=== PATIENT | female | born 1975 | race African-American/Black ===

== ENCOUNTER 2017-08-09 18:32 | Emergency (ER) | payer SELFPAY ==
[2017-08-09] MEDS: DOCUSATE SODIUM 283 MG/5 ML ENEMA. PR (19:45)
[2017-08-09] MEDS: ONDANSETRON ODT 4 MG TAB.RAPDIS. PO (20:50)
== END 2017-08-09 21:28 | disposition home or self-care (01) ==
LOC: ER 18:32
DX: K59.00 Constipation, unspecified (principal); F17.210 Nicotine dependence, cigarettes, uncomplicated
CPT/HCPCS: 74018; 99284; Q0162

== ENCOUNTER 2017-11-21 12:49 | Emergency (ER) | payer SELFPAY ==
[2017-11-21 13:12] LABS: ADD MAN DIFF? NO
[2017-11-21 13:14] LABS: BASO # 0.1 x10^3/uL (0.0-0.2); BASO % 1 % (0-3); EOS # 0.1 x10^3/uL (0.0-0.7); EOS % 2 % (0-3); HEMATOCRIT 36.4 % (36.0-47.0); HEMOGLOBIN 12.6 g/dL (12.0-15.5); LYMPH # 3.3 x10^3/uL (1.0-4.8); LYMPH % 37 % (24-48); MEAN CORPUSCULAR HEMOGLOBIN 29 pg (25-35); MEAN CORPUSCULAR HGB CONC 35 g/dL (31-37); MEAN CORPUSCULAR VOLUME 84 fL (79-100); MONO # 0.4 x10^3/uL (0.0-1.1); MONO % 5 % (0-9); NEUT % 56 % (31-73); PLATELET COUNT 247 x10^3/uL (140-400); RED BLOOD COUNT 4.35 x10^6/uL (3.50-5.40); RED CELL DISTRIBUTION WIDTH 14.6 % (11.5-14.5)
[2017-11-21 13:26] LABS: ANION GAP 10 (6-14); BLOOD UREA NITROGEN 9 mg/dL (7-20); BUN/CREATININE RATIO 10 (6-20); CALCIUM 9.3 mg/dL (8.5-10.1); CARBON DIOXIDE 24 mmol/L (21-32); CHLORIDE 105 mmol/L (98-107); CREATININE 0.9 mg/dL (0.6-1.0); GFR 83.1; GLUCOSE 109 mg/dL (70-99); POTASSIUM 4.2 mmol/L (3.5-5.1); SODIUM 139 mmol/L (136-145)
[2017-11-21 13:32] LABS: ALBUMIN 3.8 g/dL (3.4-5.0); ALK PHOS 90 U/L (46-116); ALT (SGPT) 26 U/L (14-59); AST (SGOT) 22 U/L (15-37); MAGNESIUM 2.3 mg/dL (1.8-2.4); TOTAL BILIRUBIN 0.3 mg/dL (0.2-1.0); TOTAL PROTEIN 7.8 g/dL (6.4-8.2)
[2017-11-21] MEDS: ASPIRIN 325 MG TABLET PO (13:33)
[2017-11-21 13:34] LABS: TROPONINI < 0.017 ng/mL (0.000-0.055)
[2017-11-21] MEDS: IV NORMAL SALINE 1000ML BAG 1,000 ML IV (13:34)
[2017-11-21 13:39] LABS: CREATINE KINASE 147 U/L (26-192)
[2017-11-21 13:39] LABS: NT-PRO BNP 116 pg/mL (0-124); THYROID STIM HORMONE (TSH) 1.963 uIU/mL (0.358-3.74)
[2017-11-21 13:46] LABS: CKMB INDEX 0.3 % (0-4); CKMB MASS < 0.5 ng/mL (0.0-3.6)
[2017-11-21 14:34] LABS: BILIRUBIN,URINE NEGATIVE (NEG); CLARITY,URINE CLEAR; COLOR,URINE YELLOW; GLUCOSE,URINE NEGATIVE (NEG); NITRITE,URINE NEGATIVE (NEG); PROTEIN,URINE NEGATIVE (NEG-TRACE)
[2017-11-21 14:38] LABS: AMPHETAMINE/METHAMPHETAMINE NEG (NEG); BARBITURATES NEG (NEG); BENZODIAZEPINES NEG (NEG); CANNABINOIDS POS (NEG); COCAINE POS (NEG); ETHANOL, URINE NEG (NEG); METHADONE NEG (NEG); OPIATES NEG (NEG); PHENCYCLIDINE NEG (NEG)
[2017-11-21 14:43] LABS: BACTERIA,URINE FEW /HPF (0-FEW); RBC,URINE 0 /HPF (0-2); SQUAMOUS EPITHELIAL CELL,UR MANY /LPF
== END 2017-11-21 15:02 | disposition left against medical advice (07) ==
LOC: ER 12:49
DX: R07.89 Other chest pain (principal); F14.10 Cocaine abuse, uncomplicated; F12.10 Cannabis abuse, uncomplicated; F17.200 Nicotine dependence, unspecified, uncomplicated
CPT/HCPCS: 36415; 71045; 80053; 80307; 81001; 82553; 83735; 83880; 84443; 84484; 85025; 93005; 99285-25; J7030

== ENCOUNTER 2018-05-30 10:36 | Emergency (ER) | payer SELFPAY ==
[~2018-05-30] VITALS: Ht 162.6 cm; Wt 77.1 kg
[~2018-05-30 10:36] MED LIST: DOCU-109 PO; MAGN296S9 PO
--- NOTE | 2018-05-30 11:29 | PHYS DOC ---
Past Medical History Past Medical History: Ovarian Cyst, Other Additional Past Medical Histor: PRE CANCEROUS CERVICAL SCREEN Past Surgical History: Tonsillectomy Additional Information: 1/2 PACK/DAY Alcohol Use: Occasionally Drug Use: Cocaine, Marijuana Adult General Chief Complaint Chief Complaint: VAGINAL BLEEDING HPI HPI 32-year-old female presents to ER via POV with complaints of lower mid abdominal pain which started yesterday that time of her menstrual cycle onset. Patient reports over the past 3-4 months she's had this type of discomfort with her menstrual cycles. Patient reports she has also had nausea and vomiting over the past several months where her menstrual cycle start. She reports this morning since 7 AM she has gone through 3 peripads. Patient denies any vaginal discharge when she is not on her cycle. Patient denies concerns for STDs as she' s been with her partner for 20 years. Patient denies fever or urinary symptoms. Patient reports she has had regular bowel movements and denies change in her appetite. Patient did take Midol this morning. Review of Systems Review of Systems Constitutional: Denies fever or chills [] Eyes: Denies change in visual acuity, redness, or eye pain [] HENT: Denies nasal congestion or sore throat [] Respiratory: Denies cough or shortness of breath [] Cardiovascular: No additional information not addressed in HPI [] GI: Denies bloody stools or diarrhea [] : Denies dysuria or hematuria [] Musculoskeletal: Denies back pain or joint pain [] Integument: Denies rash or skin lesions [] Neurologic: Denies headache, focal weakness or sensory changes [] All other systems were reviewed and found to be within normal limits, except as documented in this note. Allergies Allergies Allergies Coded Allergies Type Severity Reaction Last Updated Verified No Known Drug Allergies 10/03/15 No Physical Exam Physical Exam Constitutional: Well developed, well nourished, no acute distress, non-toxic appearance. [] HENT: Normocephalic, atraumatic, bilateral external ears normal, oropharynx moist, no oral exudates, nose normal. [] Eyes: PERRLA, EOMI, conjunctiva normal, no discharge. [] Neck: Normal range of motion, no tenderness, supple, no stridor. [] Cardiovascular: Heart rate regular rhythm, no murmur [] Lungs & Thorax: Bilateral breath sounds clear to auscultation [] Abdomen: Bowel sounds normal, soft, no tenderness, no masses, no pulsatile masses. [] Skin: Warm, dry, no erythema, no rash. [] Back: No tenderness, no CVA tenderness. [] Extremities: No tenderness, no cyanosis, no clubbing, ROM intact, no edema. [] Neurologic: Alert and oriented X 3, normal motor function, normal sensory function, no focal deficits noted. [] Psychologic: Affect normal, judgement normal, mood normal. [] Current Patient Data Vital Signs Vital Signs Date Time Temp Pulse Resp B/P (MAP) Pulse Ox O2 Delivery O2 Flow Rate FiO2 05/30/18 13:00 75 18 122/80 (94) 98 Room Air 05/30/18 10:55 97.9 97.9 Lab Values Laboratory Tests Test 05/30/18 12:21 05/30/18 12:30 05/30/18 12:33 Urine Collection Type Unknown Urine Color Yellow Urine Clarity Cloudy Urine pH 7.5 Urine Specific [place] 1.020 Urine Protein Negative mg/dL (NEG-TRACE) Urine Glucose (UA) Negative mg/dL (NEG) Urine Ketones (Stick) Negative mg/dL (NEG) Urine Blood Small (NEG) Urine Nitrite Negative (NEG) Urine Bilirubin Negative (NEG) Urine Urobilinogen Dipstick 1.0 mg/dL (0.2 mg/dL) Urine Leukocyte Esterase Small (NEG) Urine RBC 6-10 /HPF (0-2) Urine WBC 5-10 /HPF (0-4) Urine Squamous Epithelial Cells Few /LPF Urine Bacteria Few /HPF (0-FEW) Urine Mucus Mod /LPF White Blood Count 10.5 x10^3/uL (4.0-11.0) Red Blood Count 4.33 x10^6/uL (3.50-5.40) Hemoglobin 12.6 g/dL (12.0-15.5) Hematocrit 35.6 % (36.0-47.0) L Mean Corpuscular Volume 82 fL (79-100) Mean Corpuscular Hemoglobin 29 pg (25-35) Mean Corpuscular Hemoglobin Concent 35 g/dL (31-37) Red Cell Distribution Width 14.4 % (11.5-14.5) Platelet Count 243 x10^3/uL (140-400) Neutrophils (%) (Auto) 63 % (31-73) Lymphocytes (%) (Auto) 30 % (24-48) Monocytes (%) (Auto) 5 % (0-9) Eosinophils (%) (Auto) 1 % (0-3) Basophils (%) (Auto) 1 % (0-3) Neutrophils # (Auto) 6.6 x10^3uL (1.8-7.7) Lymphocytes # (Auto) 3.2 x10^3/uL (1.0-4.8) Monocytes # (Auto) 0.5 x10^3/uL (0.0-1.1) Eosinophils # (Auto) 0.1 x10^3/uL (0.0-0.7) Basophils # (Auto) 0.1 x10^3/uL (0.0-0.2) Sodium Level 137 mmol/L (136-145) Potassium Level 3.9 mmol/L (3.5-5.1) Chloride Level 102 mmol/L (98-107) Carbon Dioxide Level 23 mmol/L (21-32) Anion Gap 12 (6-14) Blood Urea Nitrogen 6 mg/dL (7-20) L Creatinine 0.7 mg/dL (0.6-1.0) Estimated GFR (Cockcroft-Gault) 110.5 Glucose Level 91 mg/dL (70-99) Calcium Level 9.5 mg/dL (8.5-10.1) POC Urine HCG, Qualitative Hcg negative (Negative) Laboratory Tests 05/30/18 12:30 Laboratory Tests 05/30/18 12:30 Microbiology 05/30/18 Urine Culture - Final, Complete 05/30/18 Urine Culture Result 1 (ROSANNE) - Final, Complete EKG EKG [] Radiology/Procedures Radiology/Procedures [] Course & Med Decision Making Course & Med Decision Making Pertinent Labs and Imaging studies reviewed. (See chart for details) 1322: RN reports pt is requesting to be discharged and is not wanting pelvic exam in ER with plans to f/u with [facility] and will have further testing and eval. done at their office. She has remained stable while in ER denying any increase in abd. pain or vag. bleeding. Dragon Disclaimer Dragon Disclaimer This electronic medical record was generated, in whole or in part, using a voice recognition dictation system. Departure Departure Impression: Primary Impression: Abdominal pain Additional Impression: Painful menstrual periods Referrals: NO PCP (PCP) DIANA CACERES Jr, MD Patient Instructions: Abdominal Pain, Dysmenorrhea Additional Instructions: As discussed you should follow-up with [facility] for further care and evaluation for your ongoing symptoms during your menstrual cycle. You can continue taking Tylenol and/or Midol for pain as directed on container. Problem Qualifiers KRISTIE WEINSTEIN APRN May 30, 2018 11:28
[2018-05-30 12:40] LABS: BASO # 0.1 x10^3/uL (0.0-0.2); BASO % 1 % (0-3); EOS # 0.1 x10^3/uL (0.0-0.7); EOS % 1 % (0-3); HEMATOCRIT 35.6 % (36.0-47.0); HEMOGLOBIN 12.6 g/dL (12.0-15.5); LYMPH # 3.2 x10^3/uL (1.0-4.8); LYMPH % 30 % (24-48); MEAN CORPUSCULAR HEMOGLOBIN 29 pg (25-35); MEAN CORPUSCULAR HGB CONC 35 g/dL (31-37); MEAN CORPUSCULAR VOLUME 82 fL (79-100); MONO # 0.5 x10^3/uL (0.0-1.1); MONO % 5 % (0-9); NEUT # 6.6 x10^3uL (1.8-7.7); NEUT % 63 % (31-73); PLATELET COUNT 243 x10^3/uL (140-400); RED BLOOD COUNT 4.33 x10^6/uL (3.50-5.40); RED CELL DISTRIBUTION WIDTH 14.4 % (11.5-14.5); WHITE BLOOD COUNT 10.5 x10^3/uL (4.0-11.0)
[2018-05-30 12:42] LABS: BILIRUBIN,URINE NEGATIVE (NEG); CLARITY,URINE CLOUDY; COLOR,URINE YELLOW; NITRITE,URINE NEGATIVE (NEG); PH,URINE 7.5; PROTEIN,URINE NEGATIVE (NEG-TRACE)
--- NOTE | 2018-05-30 12:48 | RAD ---
Pelvic ultrasound Clinical Indication:SUPRAPUBIC PAIN WITH HEAVY MENSES. . TRANSABDOMINAL SCAN Left ovary measures about 4 cm diameter with positive blood flow. Right ovary not well seen. Uterus poorly seen. TRANSVAGINAL SCAN Uterus: * Size (in centimeters): 9.2 longitudinal by 5.1 AP by 5.8 wide * Appearance: Hypoechoic nodule in the anterior uterus measures 15 mm. * Endometrium: 9 mm mm endometrial stripe thickness. Uniform appearance. Right ovary: * Size: 3.2 cm long axis. * Blood flow: Intact * Appearance: Contains a 2.5 cm cyst Left ovary: * Size: 4.3 cm long axis. * Blood flow: Intact * Appearance: Cyst identified, measures 2.5 cm. Free fluid: None visualized IMPRESSION: 1. Bilateral ovarian cysts. 2. Hypoechoic nodule in the uterus, would most commonly represent a fibroid. Electronically signed by: Zuhair Small MD (05/30/2018 12:44 PM) [id number]
[2018-05-30 12:52] LABS: CALCIUM 9.5 mg/dL (8.5-10.1); CREATININE 0.7 mg/dL (0.6-1.0); GFR 110.5; POTASSIUM 3.9 mmol/L (3.5-5.1)
[2018-05-30 12:53] LABS: BACTERIA,URINE FEW /HPF (0-FEW); SQUAMOUS EPITHELIAL CELL,UR FEW /LPF
[2018-05-30 13:00] VITALS: BP 122/80
== END 2018-05-30 13:38 | disposition home or self-care (01) ==
LOC: ER 10:36
DX: R10.30 Lower abdominal pain, unspecified (principal); N94.6 Dysmenorrhea, unspecified; R11.2 Nausea with vomiting, unspecified; F17.200 Nicotine dependence, unspecified, uncomplicated
CPT/HCPCS: 36415; 76830; 76856; 80048; 81001; 81025; 85025; 87086; 99284-25

== ENCOUNTER 2018-11-28 18:37 | Emergency (ER) | payer SELFPAY ==
[~2018-11-28] VITALS: Ht 162.6 cm; Wt 78.9 kg
[2018-11-28 19:45] VITALS: BP 145/90
[2018-11-28 20:03] LABS: BILIRUBIN,URINE NEGATIVE (NEG); CLARITY,URINE CLOUDY; COLOR,URINE YELLOW; NITRITE,URINE NEGATIVE (NEG); PH,URINE 5.5; PROTEIN,URINE NEGATIVE (NEG-TRACE)
[2018-11-28 20:21] LABS: BACTERIA,URINE FEW /HPF (0-FEW); RBC,URINE OCC /HPF (0-2); SQUAMOUS EPITHELIAL CELL,UR OCC /LPF; TRICHOMONAS,URINE PRESENT
[2018-11-28] MEDS ORDERED: SULF1TAB24 PO (20:40)
--- NOTE | 2018-11-28 20:41 | PHYS DOC ---
Past Medical History Past Medical History: Ovarian Cyst, Other Additional Past Medical Histor: PRE CANCEROUS CERVICAL SCREEN Past Surgical History: Tonsillectomy Alcohol Use: Occasionally Drug Use: Cocaine, Marijuana Adult General Chief Complaint Chief Complaint: MULTIPLE COMPLAINTS [facility] 42-year-old female presents with a couple different complaints. She states she's been dizzy and had some near syncopal episodes over the fat past few days. She complains of low back and flank pain. She's also had urinary urgency and frequency. She denies any fever chills or sweats. She denies any gross hematuria. She states she's not in significant amount of pain now. She does admit to having a mild headache.[] Review of Systems Review of Systems Constitutional: Denies fever or chills [] Eyes: Denies change in visual acuity, redness, or eye pain [] HENT: Denies nasal congestion or sore throat [] Respiratory: Denies cough or shortness of breath [] Cardiovascular: No additional information not addressed in HPI [] GI: Denies abdominal pain, nausea, vomiting, bloody stools or diarrhea [] : Per history of present illness[] Musculoskeletal: Reports low back pain[] Integument: Denies rash or skin lesions [] Neurologic: Reports a headache[] All other systems were reviewed and found to be within normal limits, except as documented in this note. Allergies Allergies Allergies Coded Allergies Type Severity Reaction Last Updated Verified No Known Drug Allergies 10/03/15 No Physical Exam Physical Exam Constitutional: Well developed, well nourished, no acute distress, non-toxic appearance. [] HENT: Normocephalic, atraumatic, bilateral external ears normal, oropharynx moist, no oral exudates, nose normal. [] Eyes: PERRLA, EOMI, conjunctiva normal, no discharge. [] Neck: Normal range of motion, no tenderness, supple, no stridor. [] Cardiovascular:Heart rate regular rhythm, no murmur [] Lungs & Thorax: Bilateral breath sounds clear to auscultation [] Abdomen: Bowel sounds normal, soft, no tenderness, no masses, no pulsatile masses. [] Skin: Warm, dry, no erythema, no rash. [] Back: No tenderness, no CVA tenderness. [] Extremities: No tenderness, no cyanosis, no clubbing, ROM intact, no edema. [] Neurologic: Alert and oriented X 3, normal motor function, normal sensory func tion, no focal deficits noted. [] Psychologic: Affect normal, judgement normal, mood normal. [] Current Patient Data Lab Values Laboratory Tests Test 11/28/18 19:40 11/28/18 19:58 11/28/18 20:13 Urine Color Yellow Urine Clarity Cloudy Urine pH 5.5 Urine Specific [place] 1.025 Urine Protein Negative mg/dL (NEG-TRACE) Urine Glucose (UA) Negative mg/dL (NEG) Urine Ketones (Stick) Negative mg/dL (NEG) Urine Blood Trace (NEG) Urine Nitrite Negative (NEG) Urine Bilirubin Negative (NEG) Urine Urobilinogen Dipstick 1.0 mg/dL (0.2 mg/dL) Urine Leukocyte Esterase Small (NEG) Urine RBC Occ /HPF (0-2) Urine WBC 1-4 /HPF (0-4) Urine Squamous Epithelial Cells Occ /LPF Urine Bacteria Few /HPF (0-FEW) Urine Trichomonas Present POC Urine HCG, Qualitative Hcg negative (Negative) Glucose (Fingerstick) 98 mg/dL (70-99) EKG EKG [] Radiology/Procedures Radiology/Procedures [] Course & Med Decision Making Course & Med Decision Making Pertinent Labs and Imaging studies reviewed. (See chart for details) [] Dragon Disclaimer Dragon Disclaimer This electronic medical record was generated, in whole or in part, using a voice recognition dictation system. Departure Departure Impression: Primary Impression: Urinary tract infection Disposition: 01 HOME, SELF-CARE Condition: STABLE Referrals: NO PCP (PCP) Patient Instructions: Urinary Tract Infection Additional Instructions: Take your antibiotics as directed. Return to the emergency with any new or concerning symptoms Scripts Sulfamethoxazole/Trimethoprim (BACTRIM DS TABLET) 1 Each Tablet 1 TAB PO BID, #6 TAB Prov: ANANDA LUO DO 11/28/18 Problem Qualifiers Primary Impression: Urinary tract infection Urinary tract infection type: site unspecified Hematuria presence: without hematuria Qualified Codes: N39.0 - Urinary tract infection, site not specified ANANDA LUO DO Nov 28, 2018 20:40
== END 2018-11-28 20:36 | disposition home or self-care (01) ==
LOC: ER 18:37
DX: N39.0 Urinary tract infection, site not specified (principal); R42 Dizziness and giddiness; R55 Syncope and collapse; Z90.89 Acquired absence of other organs
CPT/HCPCS: 81001; 81025; 82962; 87086; 99284

== ENCOUNTER 2020-09-13 18:37 | Emergency (ER) | payer SELFPAY ==
[~2020-09-13] VITALS: Ht 162.6 cm; Wt 79.5 kg
[~2020-09-13 18:37] MED LIST changes: +MAGN296S68 PO; -MAGN296S9 PO; +SULF1TAB24 PO
--- NOTE | 2020-09-13 19:45 | PHYS DOC ---
Past Medical History Past Medical History: No Pertinent History Additional Past Medical Histor: PRE CANCEROUS CERVICAL SCREEN Past Surgical History: No Surgical History Smoking Status: Current Every Day Smoker Alcohol Use: Occasionally Drug Use: Cocaine, Marijuana General Adult EDM: Chief Complaint: ABDOMINAL PAIN HPI: HPI: Patient is a 44 year [id number] female presents with a chief complaint of left flank/buttocks pain. Patient states she has had pain on and off for 1 month. Over the last few days pain has returned and become more frequent and painful. . Patient's flank pain is in the left flank radiates to the left groin then to knee. Patient has had associated nausea and vomiting. Patient denies any urinary symptoms. Patients last menstrual period was on sunday. Patient denies injury. Review of Systems: Review of Systems: Review of systems: Constitutional symptoms- No fever, no chills. Eyes- No Discharge, No Visual Loss Respiratory symptoms- No shortness of breath, No wheezing, No Dyspnea on Exertion Cardiovascular Systems; No chest pain, No Palpitations, No syncope Gastrointestinal symptoms: NO abdominal pain, no nausea, no vomiting or diarrhea. Genitourinary symptoms: No dysuria. Musculoskeletal symptoms: positive back pain No extremity pain. NEUROLOGICAL Symptoms: No headache, no generalized weakness; No focal Weakness Heart Score: C/O Chest Pain: N/A Risk Factors: Risk Factors: DM, Current or recent (<one month) smoker, HTN, HLP, family history of CAD, obesity. Risk Scores: Score 0 - 3: 2.5% MACE over next 6 weeks - Discharge Home Score 4 - 6: 20.3% MACE over next 6 weeks - Admit for Clinical Observation Score 7 - 10: 72.7% MACE over next 6 weeks - Early Invasive Strategies Allergies: Allergies: Allergies Coded Allergies Type Severity Reaction Last Updated Verified No Known Drug Allergies 10/03/15 No Physical Exam: PE: General: alert, no acute distress. Skin: warm, dry and intact. Head:: Normocephalic, atraumatic. Neck: Trachea midline. Eyes: EOMI, Normal conjunctiva, No drainage CARDIOVASCULAR: Regular rate and rhythm RESPIRATORY: No respiratory distress Back: Full range of motion. MUSCULOSKELETAL: Full range of motion of bilateral upper and lower extremities. GASTROINTESTINAL: Abdomen soft without rebound or guarding. NEUROLOGICAL: Alert and noted to person, place and time. No neurological de ficits observed Psychiatric: Cooperative. Normal judgment Current Patient Data: Vital Signs: Vital Signs Date Time Temp Pulse Resp B/P (MAP) Pulse Ox O2 Delivery O2 Flow Rate FiO2 09/13/20 19:07 97.9 78 22 123/83 (96) 97 97.9 EKG: EKG: [] Radiology/Procedures: Radiology/Procedures: [] Course & Med Decision Making: Course & Med Decision Making Pertinent Labs and Imaging studies reviewed. (See chart for details) [] Dragon Disclaimer: Dragon Disclaimer: This electronic medical record was generated, in whole or in part, using a voice recognition dictation system. Departure Departure Impression: Primary Impression: Flank pain Additional Impressions: Urinary tract infection Sciatic leg pain Disposition: HOME SELF CARE/HOMELESS Condition: STABLE Referrals: NO PCP (PCP) Patient Instructions: Flank Pain, Sciatica, Urinary Tract Infection Scripts Tramadol Hcl (ULTRAM) 50 Mg Tablet 1 TAB PO PRN Q6HRS PRN for pain MDD 4 Tablet(s) for 7 Days, #20 TAB 0 Refills Prov: KARMA PULIDO DO 09/13/20 Prednisone (PREDNISONE) 20 Mg Tablet 1 TAB PO UD for 12 Days, #15 TAB Take 2 tabs days 1,2,3 1.5 tabs days 3,4,5 1 tab days 6,7,8 0.5 tab days 9,10,11 Prov: KARMA PULIDO DO 09/13/20 Nitrofurantoin Macrocrystal (MACRODANTIN) 100 Mg Capsule 1 CAP PO BID for 7 Days, #14 CAP 0 Refills Prov: KARMA PULIDO DO 09/13/20 KARMA PULIDO DO Sep 13, 2020 19:45
[2020-09-13] MEDS ORDERED: ONDANSETRON PF 4 MG/2 ML VIAL. IVP ONE (20:00)
[2020-09-13] MEDS ORDERED: KETOROLAC 30 MG/ML VIAL. IVP ONE (20:00)
[2020-09-13 20:06] LABS: BASO # 0.1 x10^3/uL (0.0-0.2); BASO % 1 % (0-3); EOS # 0.3 x10^3/uL (0.0-0.7); EOS % 4 % (0-3); HEMATOCRIT 34.5 % (36.0-47.0); HEMOGLOBIN 11.8 g/dL (12.0-15.5); LYMPH # 3.4 x10^3/uL (1.0-4.8); LYMPH % 37 % (24-48); MEAN CORPUSCULAR HEMOGLOBIN 28 pg (25-35); MEAN CORPUSCULAR HGB CONC 34 g/dL (31-37); MEAN CORPUSCULAR VOLUME 83 fL (79-100); MONO # 0.6 x10^3/uL (0.0-1.1); MONO % 6 % (0-9); NEUT # 4.8 x10^3/uL (1.8-7.7); NEUT % 52 % (31-73); PLATELET COUNT 276 x10^3/uL (140-400); RED BLOOD COUNT 4.18 x10^6/uL (3.50-5.40); RED CELL DISTRIBUTION WIDTH 15.3 % (11.5-14.5); WHITE BLOOD COUNT 9.3 x10^3/uL (4.0-11.0)
[2020-09-13 20:20] LABS: CALCIUM 8.7 mg/dL (8.5-10.1); CREATININE 0.9 mg/dL (0.6-1.0); GFR 81.9; POTASSIUM 3.8 mmol/L (3.5-5.1)
[2020-09-13 20:26] LABS: ALBUMIN 3.2 g/dL (3.4-5.0); ALBUMIN/GLOBULIN RATIO 0.9 (1.0-1.7); TOTAL BILIRUBIN 0.2 mg/dL (0.2-1.0); TOTAL PROTEIN 6.9 g/dL (6.4-8.2)
[2020-09-13 21:12] LABS: BILIRUBIN,URINE SMALL (NEG); CLARITY,URINE CLEAR; COLOR,URINE AMBER; NITRITE,URINE NEGATIVE (NEG); PROTEIN,URINE NEGATIVE (NEG-TRACE)
[2020-09-13 21:18] LABS: BACTERIA,URINE 0 /HPF (0-FEW); RBC,URINE OCC /HPF (0-2)
--- NOTE | 2020-09-13 21:48 | RAD ---
Study: CT abdomen/pelvis without intravenous contrast Indication: Flank pain. Comparison: None. Technique: Helical CT imaging performed of the abdomen and pelvis without the use of intravenous cont rast. Sagittal and coronal reformats were obtained. One or more of the following individualized dose reduction techniques were utilized for this examinat ion: 1. Automated exposure control 2. Adjustment of the mA and/or kV according to patient size 3. Use of iterative reconstruction technique. Findings: Inherently limited evaluation without intravenous contrast. Right lower lobe pulmonary nodule measuring 6 mm transverse. No focal hepatic parenchymal abnormality. Unremarkable gallbladder, biliary tree, pancreas, spleen an d adrenal glands. No intrarenal stone. No hydronephrosis. Decompressed urinary bladder. Left adnexal fullness with slight deviation of the uterus to the right. Unremarkable right adnexa. Mild amount of well-formed stool within the colon. Normal appendix. Nonobstructed small bowel. Unrema rkable stomach. Mild aortic and iliac calcific atherosclerosis. No lymphadenopathy. No free fluid or pneumoperitoneum. Unremarkable body wall soft tissues. Lower lumbar facet arthrosis greatest on the right at L5-S1. Mil d to moderate osseous neural foraminal stenosis on the right at this level. No evidence for central c anal narrowing. Degenerative changes at the pubic symphysis and mildly at the hips. Impression: 1. No nephrolithiasis or collecting system dilatation on the right or left to explain reported flank pain. 2. Asymmetric fullness at the left adnexa. This is most likely benign given patient age but given in complete assessment on this unenhanced CT consider eventual ultrasound follow-up such as in 3 months. No free pelvic fluid suggests an inflammatory or infectious process. 3. Right lower lobe pulmonary nodule measuring 6 mm. Per Fleischner guidelines, follow-up CT chest i s recommended in 6 months. Electronically signed by: EMMANUEL HUFFMAN MD (09/13/2020 9:46 PM) [facility] [place]
[2020-09-13] MEDS ORDERED: NITR100C63 PO (22:41)
[2020-09-13] MEDS ORDERED: TRAM-48 PO (22:41)
[2020-09-13] MEDS ORDERED: PRED20TA PO (22:41)
[2020-09-13 22:52] VITALS: BP 124/78
== END 2020-09-13 22:55 | disposition home or self-care (01) ==
LOC: ER 18:37
DX: N39.0 Urinary tract infection, site not specified (principal); M25.562 Pain in left knee; R10.32 Left lower quadrant pain; R11.2 Nausea with vomiting, unspecified; F17.200 Nicotine dependence, unspecified, uncomplicated; F12.90 Cannabis use, unspecified, uncomplicated; F14.90 Cocaine use, unspecified, uncomplicated; Z98.890 Other specified postprocedural states
CPT/HCPCS: 36415; 74176; 80053; 81001; 81025; 85025; 87086; 96374; 96375; 99285; J1885; J2405

== ENCOUNTER 2021-08-01 14:42 | Emergency (ER) | payer SELFPAY ==
[~2021-08-01] VITALS: Ht 162.6 cm; Wt 79.1 kg
[~2021-08-01 14:42] MED LIST changes: +NITR100C63 PO; +PRED20TA PO; +TRAM-48 PO
[2021-08-01 15:31] LABS: BASO # 0.1 x10^3/uL (0.0-0.2); BASO % 1 % (0-3); EOS # 0.3 x10^3/uL (0.0-0.7); EOS % 4 % (0-3); HEMATOCRIT 33.5 % (36.0-47.0); HEMOGLOBIN 11.4 g/dL (12.0-15.5); LYMPH # 2.4 x10^3/uL (1.0-4.8); LYMPH % 28 % (24-48); MEAN CORPUSCULAR HEMOGLOBIN 28 pg (25-35); MEAN CORPUSCULAR HGB CONC 34 g/dL (31-37); MEAN CORPUSCULAR VOLUME 82 fL (79-100); MONO # 0.4 x10^3/uL (0.0-1.1); MONO % 5 % (0-9); NEUT # 5.3 x10^3/uL (1.8-7.7); NEUT % 62 % (31-73); PLATELET COUNT 344 x10^3/uL (140-400); RED BLOOD COUNT 4.09 x10^6/uL (3.50-5.40); RED CELL DISTRIBUTION WIDTH 15.4 % (11.5-14.5); WHITE BLOOD COUNT 8.5 x10^3/uL (4.0-11.0)
[2021-08-01 15:51] LABS: CALCIUM 8.4 mg/dL (8.5-10.1); CREATININE 0.7 mg/dL (0.6-1.0)
[2021-08-01 15:57] LABS: ALBUMIN 3.3 g/dL (3.4-5.0); ALBUMIN/GLOBULIN RATIO 0.9 (1.0-1.7); TOTAL BILIRUBIN 0.2 mg/dL (0.2-1.0); TOTAL PROTEIN 6.8 g/dL (6.4-8.2)
[2021-08-01 15:58] LABS: CLARITY,URINE BLOODY; COLOR,URINE RED
[2021-08-01 16:00] LABS: RBC,URINE TNTC /HPF (0-2)
[2021-08-01] MEDS ORDERED: CONTRAST GIVEN. MC PRN (16:00)
[2021-08-01] MEDS ORDERED: IOHEXOL 300 MG/ML 100ML VIAL. IV ONE (16:00)
[2021-08-01 16:02] LABS: AMORPHOUS SEDIMENT,UR PRESENT /HPF; BACTERIA,URINE MANY /HPF (0-FEW)
--- NOTE | 2021-08-01 16:43 | RAD ---
EXAM: CT ABDOMEN/PELVIS WITH CONTRAST. HISTORY: Abdominal pain, bloody stools. TECHNIQUE: Computed tomography of the abdomen and pelvis was performed after the intravenous administ ration of iodinated contrast. One or more of the following individualized dose reduction techniques w ere utilized for this examination: 1. Automated exposure control. 2. Adjustment of the mA and/or kV according to patient size. 3. Use of iterative reconstruction technique. COMPARISON: 09/13/2020. FINDINGS: Lung windows through the visualized portions of the bases reveal an uncalcified nodule in t he right lower lobe on image 3 measuring 6 mm. This is stable. Bone windows reveal no suspicious lesi ons. A 9 mm hypoattenuating lesion posteriorly in hepatic segment 7 contains enhancing foci and likely ref lects a benign hemangioma. It appears stable. The gallbladder, spleen, pancreas, adrenal glands and kidneys are unremarkable. There are no patholog ically enlarged lymph nodes. A cystic lesion in the left adnexa measures 4.0 x 4.0 cm. The right ovary and uterus are unremarkable . There is no evidence of appendicitis. There is no small bowel obstruction. A soft tissue nodule in the fat of the left false pelvis on image 52 is stable at 16 x 10 mm. IMPRESSION: 1. 4.0 cm cyst in the left adnexa. Sonographic follow-up to confirm resolution if there is persistent concern. 2. A 6 mm nodule in the right lower lobe has been stable for 11 months and is most likely benign. Ano ther follow-up could be performed in one year if there are risk factors. 3. A 1.6 cm scarlike focus in the left lower quadrant is also stable and is most likely benign in the absence of known malignancy. Electronically signed by: Livia Parsons MD (08/01/2021 4:41 PM) [facility]
[2021-08-01 17:05] LABS: PROTHROMBIN TIME PATIENT 12.5 SEC (11.7-14.0)
--- NOTE | 2021-08-01 17:26 | PHYS DOC ---
Past Medical History Past Medical History: No Pertinent History Additional Past Medical Histor: PRE CANCEROUS CERVICAL SCREEN (EFRAIN CASTELLANOS WEB CONTENT SPECIALIST) Past Surgical History: No Surgical History (EFRAIN CASTELLANOS WEB CONTENT SPECIALIST) Smoking Status: Current Every Day Smoker Additional Information: 5 CIGARETTES PER DAY. Alcohol Use: Occasionally Drug Use: Cocaine, Marijuana Social History Narrative: MARIJUANA 07/31/21 AND COCAINE 07/30/21 (EFRAIN CASTELLANOS WEB CONTENT SPECIALIST) General Adult EDM: Chief Complaint: ABDOMINAL PAIN HPI: HPI: Patient is a 45 year old female who presents to the ED today complaining of 5 out of 10 bilateral lower abdominal pain worse on the left lower abdomen, symptoms have been going on for 3 days. Patient states she is constipated. She states she has not had a normal bowel movement for 3 days, she states the last time she had a bowel movement was she had bright red blood on her on the stool. She states she is currently on her menstrual cycle. Denies any nausea, vomiting. (EFRAIN CASTELLANOS WEB CONTENT SPECIALIST) Review of Systems: Review of Systems: Constitutional: Denies fever or chills. [] Eyes: Denies change in visual acuity. [] HENT: Denies nasal congestion or sore throat. [] Respiratory: Denies cough or shortness of breath. [] Cardiovascular: Denies chest pain or edema. [] GI: Reports abdominal pain, reports constipation, denies nausea, vomiting, bloody stools or diarrhea. [] : Denies dysuria. [] Musculoskeletal: Denies back pain or joint pain. [] Integument: Denies rash. [] Neurologic: Denies headache, focal weakness or sensory changes. [] Psychiatric: Denies depression or anxiety. [] (EFRAIN CASTELLANOS WEB CONTENT SPECIALIST) Heart Score: C/O Chest Pain: N/A Risk Factors: Risk Factors: DM, Current or recent (<one month) smoker, HTN, HLP, family history of CAD, obesity. Risk Scores: Score 0 - 3: 2.5% MACE over next 6 weeks - Discharge Home Score 4 - 6: 20.3% MACE over next 6 weeks - Admit for Clinical Observation Score 7 - 10: 72.7% MACE over next 6 weeks - Early Invasive Strategies (EFRAIN CASTELLANOS WEB CONTENT SPECIALIST) Current Medications: Current Medications Medications (Trade) Dose Ordered Sig/Lisa Start Time Stop Time Status Last Admin Dose Admin Info (CONTRAST GIVEN -- Rx MONITORING) 1 each PRN DAILY PRN 08/01/21 16:00 08/03/21 15:59 Iohexol (Omnipaque 300 Mg/ml) 75 ml 1X ONCE 08/01/21 16:00 08/01/21 16:01 DC 08/01/21 16:03 75 ML (EMANUELEFRAIN Kristi WEB CONTENT SPECIALIST) Allergies: Allergies: Allergies Coded Allergies Type Severity Reaction Last Updated Verified No Known Drug Allergies 10/03/15 No (BENJYEFRAIN GODINEZ WEB CONTENT SPECIALIST) Physical Exam: PE: Constitutional: Well developed, well nourished, no acute distress, non-toxic appearance. [] HENT: Normocephalic, atraumatic, bilateral external ears normal, oropharynx moist, no oral exudates, nose normal. [] Eyes: PERRLA, EOMI, conjunctiva normal, no discharge. [] Neck: Normal range of motion, no tenderness, supple, no stridor. [] Cardiovascular:Heart rate regular rhythm, no murmur [] Lungs & Thorax: Bilateral breath sounds clear to auscultation [] Abdomen: Bowel sounds normal, soft, no tenderness, no masses, no pulsatile masses. [] Rectal exam was attempted, patient is on her menstrual cycle, there is quite a bit of blood around her rectum from the vagina. I attempted to clean some of the blood from the vagina for rectal exam she continued to have blood go down to the rectal region making the rectal fecal collection for Hemoccult impossible. Skin: Warm, dry, no erythema, no rash. [] Back: No tenderness, no CVA tenderness. [] Extremities: No tenderness, no cyanosis, no clubbing, ROM intact, no edema. [] Neurologic: Alert and oriented X 3, normal motor function, normal sensory function, no focal deficits noted. [] Psychologic: Affect normal, judgement normal, mood normal. [] (EFRAIN CASTELLANOS WEB CONTENT SPECIALIST) Current Patient Data: Labs: Laboratory Tests Test 08/01/21 15:07 08/01/21 15:32 White Blood Count 8.5 x10^3/uL (4.0-11.0) Red Blood Count 4.09 x10^6/uL (3.50-5.40) Hemoglobin 11.4 g/dL (12.0-15.5) L Hematocrit 33.5 % (36.0-47.0) L Mean Corpuscular Volume 82 fL (79-100) Mean Corpuscular Hemoglobin 28 pg (25-35) Mean Corpuscular Hemoglobin Concent 34 g/dL (31-37) Red Cell Distribution Width 15.4 % (11.5-14.5) H Platelet Count 344 x10^3/uL (140-400) Neutrophils (%) (Auto) 62 % (31-73) Lymphocytes (%) (Auto) 28 % (24-48) Monocytes (%) (Auto) 5 % (0-9) Eosinophils (%) (Auto) 4 % (0-3) H Basophils (%) (Auto) 1 % (0-3) Neutrophils # (Auto) 5.3 x10^3/uL (1.8-7.7) Lymphocytes # (Auto) 2.4 x10^3/uL (1.0-4.8) Monocytes # (Auto) 0.4 x10^3/uL (0.0-1.1) Eosinophils # (Auto) 0.3 x10^3/uL (0.0-0.7) Basophils # (Auto) 0.1 x10^3/uL (0.0-0.2) Sodium Level 141 mmol/L (136-145) Potassium Level 4.0 mmol/L (3.5-5.1) Chloride Level 106 mmol/L (98-107) Carbon Dioxide Level 26 mmol/L (21-32) Anion Gap 9 (6-14) Blood Urea Nitrogen 8 mg/dL (7-20) Creatinine 0.7 mg/dL (0.6-1.0) Estimated GFR (Cockcroft-Gault) 109.0 BUN/Creatinine Ratio 11 (6-20) Glucose Level 116 mg/dL (70-99) H Calcium Level 8.4 mg/dL (8.5-10.1) L Total Bilirubin 0.2 mg/dL (0.2-1.0) Aspartate Amino Transferase (AST) 17 U/L (15-37) Alanine Aminotransferase (ALT) 23 U/L (14-59) Alkaline Phosphatase 84 U/L (46-116) Total Protein 6.8 g/dL (6.4-8.2) Albumin 3.3 g/dL (3.4-5.0) L Albumin/Globulin Ratio 0.9 (1.0-1.7) L Lipase 139 U/L (73-393) Urine Collection Type Unknown Urine Color Red Urine Clarity Bloody Urine pH (<5.0-8.0) Urine Specific Langdon (1.000-1.030) Urine Protein mg/dL (NEG-TRACE) Urine Glucose (UA) mg/dL (NEG) Urine Ketones (Stick) mg/dL (NEG) Urine Blood (NEG) Urine Nitrite (NEG) Urine Bilirubin (NEG) Urine Urobilinogen Dipstick mg/dL (0.2 mg/dL) Urine Leukocyte Esterase (NEG) Urine RBC Tntc /HPF (0-2) Urine WBC 11-20 /HPF (0-4) Urine Squamous Epithelial Cells Many /LPF Urine Amorphous Sediment Present /HPF Urine Bacteria Many /HPF (0-FEW) Urine Mucus Marked /LPF Laboratory Tests 08/01/21 15:07 Laboratory Tests 08/01/21 15:07 Vital Signs: Vital Signs Date Time Temp Pulse Resp B/P (MAP) Pulse Ox O2 Delivery O2 Flow Rate FiO2 08/01/21 15:31 75 16 141/88 (105) 99 Room Air 08/01/21 14:43 98.3 98.3 (EFRAIN CASTELLANOS APRN) EKG: EKG: [] (EFRAIN CASTELLANOS APRN) Radiology/Procedures: Radiology/Procedures: []PROCEDURE: CT ABD PELV W/ IV CONTRST ONLY EXAM: CT ABDOMEN/PELVIS WITH CONTRAST. HISTORY: Abdominal pain, bloody stools. TECHNIQUE: Computed tomography of the abdomen and pelvis was performed after the intravenous administration of iodinated contrast. One or more of the following individualized dose reduction techniques were utilized for this examination: 1. Automated exposure control. 2. Adjustment of the mA and/or kV according to patient size. 3. Use of iterative reconstruction technique. COMPARISON: 09/13/2020. FINDINGS: Lung windows through the visualized portions of the bases reveal an uncalcified nodule in the right lower lobe on image 3 measuring 6 mm. This is stable. Bone windows reveal no suspicious lesions. A 9 mm hypoattenuating lesion posteriorly in hepatic segment 7 contains enhancing foci and likely reflects a benign hemangioma. It appears stable. The gallbladder, spleen, pancreas, adrenal glands and kidneys are unremarkable. There are no pathologically enlarged lymph nodes. A cystic lesion in the left adnexa measures 4.0 x 4.0 cm. The right ovary and uterus are unremarkable. There is no evidence of appendicitis. There is no small bowel obstruction. A soft tissue nodule in the fat of the left false pelvis on image 52 is stable at 16 x 10 mm. IMPRESSION: 1. 4.0 cm cyst in the left adnexa. Sonographic follow-up to confirm resolution if there is persistent concern. 2. A 6 mm nodule in the right lower lobe has been stable for 11 months and is most likely benign. Another follow-up could be performed in one year if there are risk factors. 3. A 1.6 cm scarlike focus in the left lower quadrant is also stable and is most likely benign in the absence of known malignancy. Electronically signed by: Livia Parsons MD (08/01/2021 4:41 PM) [facility] DICTATED and SIGNED BY: VÍCTOR PARSONS MD DATE: 08/01/21 [id number] 0 (EFRAIN CASTELLANOS WEB CONTENT SPECIALIST) Course & Med Decision Making: Course & Med Decision Making Pertinent Labs and Imaging studies reviewed. (See chart for details) This is a 45-year-old female patient presented to the ED today complaining of bilateral lower abdominal pain worse on the left, symptoms for 3 days, also complaining of constipation. Also complaining of bloody stools noted 3 days ago during a bowel movement CBC with a normal WBC, hemoglobin 11.4 and hematocrit of 33.5 CMP with no acute findings. UA negative not readable due to blood in urine CT of the abdomen and pelvis noted for 4.0 cm cyst in the left adnexa. Sonographic follow-up to confirm resolution if there is persistent concern. A 6 mm nodule in the right lower lobe has been stable for 11 months and is most likely benign. Another follow-up could be performed in one year if there are risk factors. A 1.6 cm scarlike focus in the left lower quadrant is also stable and is most likely benign in the absence of known malignancy Above results were discussed with patient. I Highly recommended patient to follow-up with an CLOUD SECURITY ARCHITECT to confirm resolution of the left adnexal cyst. She was also provided PCP to follow-up for the lung nodule (EFRAIN CASTELLANOS APRN) Course & Med Decision Making I have reviewed the PA/SHELL MOLDER's note and plan of care. I was available for consultation as needed during the patient's visit in the emergency department. I discussed this case with ADI Lilly after the patient was discharged. A pelvic ultrasound was recommended to attempt to exclude ovarian torsion in the setting of her abdominal pain and visualize [address] The patient declined the ultrasound. The patient also refused a pelvic exam. She was provided with OB f/u information with on-call OB, Dr. Joseph. (VÍCTOR SINHA MD) Dragon Disclaimer: Dragon Disclaimer: This electronic medical record was generated, in whole or in part, using a voice recognition dictation system. (EFRAIN CASTELLANOS APRN) Departure Departure Impression: Primary Impression: Dysmenorrhea Additional Impressions: Left ovarian cyst Lung nodule Disposition: HOME / SELF CARE / HOMELESS Condition: STABLE Referrals: NO PCP (PCP) JAMES JOSEPH MD follow up in one week Patient Instructions: Dysmenorrhea, [id number], Ovarian Cyst Additional Instructions: You were evaluated in the emergency room for abdominal pain, please follow-up with the provided CLOUD SECURITY ARCHITECT for the left adnexal cyst, follow-up with the PCP as well for the right lung nodule. You just need to follow-up to make sure he does not turn into anything bad EFRAIN CASTELLANOS APRN Aug 01, 2021 17:26 VÍCTOR SINHA MD Aug 01, 2021 18:30
[2021-08-01 17:29] LABS: U PREG PATIENT NEGATIVE (NEG)
[2021-08-01 17:53] VITALS: BP 148/72
== END 2021-08-01 17:55 | disposition home or self-care (01) ==
LOC: ER 14:42
DX: N94.6 Dysmenorrhea, unspecified (principal); N83.202 Unspecified ovarian cyst, left side; R91.1 Solitary pulmonary nodule; F17.210 Nicotine dependence, cigarettes, uncomplicated
CPT/HCPCS: 36415; 74177; 80053; 81001; 81025; 83690; 85025; 85610; 85730; 87086; 99285; Q9967